=== PATIENT | female | born 1965 | race Caucasian/White ===

== ENCOUNTER 2017-11-11 07:10 | Outpatient (CLI) | payer OTHER | END 2017-11-11 07:11 | disposition home or self-care (01) | LOC: BICMAMMO 07:10 | PROVIDERS: ATTEND Family Medicine | DX: R92.8 Other abnormal and inconclusive findings on diagnostic imaging of breast (principal) ==

== ENCOUNTER 2019-03-15 09:28 | Outpatient (CLI) | payer BC ==
--- NOTE | 2019-03-15 10:59 | MMO ---
Bilateral MAMMO Bilat Diag [facility]. CLINICAL HISTORY: Patient is 53 years old and is seen for diagnostic exam and palpable abnormality in both breasts. The patient has the following family history of breast cancer: maternal grandmother, at age 65. The patient has no personal history of cancer. The patient has a history of right Excisional Biopsy in 2010 - benign. VIEWS: The views performed were: bilateral craniocaudal with tomosynthesis; bilateral mediolateral oblique with tomosynthesis; bilateral mediolateral; and right exaggerated craniocaudal. FILMS COMPARED: The present examination has been compared to prior imaging studies performed at on 08/24/2014, 09/20/2015, 12/16/2016, 11/11/2017 and 03/15/2019. MAMMOGRAM FINDINGS: The breasts are heterogeneously dense, which could obscure a lesion on mammography. There is an oval mass with circumscribed margins seen in the central region of the right breast. The mass was shown to be a cyst on ultrasound. There are no suspicious masses, suspicious calcifications, or new areas of architectural distortion. IMPRESSION: THERE IS NO MAMMOGRAPHIC EVIDENCE OF MALIGNANCY. A ROUTINE FOLLOW-UP MAMMOGRAM IN 1 YEAR IS RECOMMENDED. THE RESULTS OF THIS EXAM WERE SENT TO THE PATIENT. ACR BI-RADS Category 2 - Benign finding MAMMOGRAPHY NOTE: 1. A negative mammogram report should not delay a biopsy if a dominant of clinically suspicious mass is present. 2. Approximately 10% to 15% of breast cancers are not detected by mammography. 3. Adenosis and dense breasts may obscure an underlying neoplasm.
--- NOTE | 2019-03-15 11:21 | ULT ---
RIGHT BREAST ULTRASOUND LEFT BREAST ULTRASOUND: Date: 03/15/19 HISTORY: Palpable masses in bilateral breasts per the patient. The masses are in the upper inner aspect of the right breast and upper outer aspect of the left breast. COMPARISON: Mammogram dated 03/15/19, 11/11/17, and 12/16/16, and ultrasound dated 11/11/17 and 12/16/16. TECHNIQUE: Multiplanar Thompson scale and color Doppler images were obtained in bilateral breast ultrasound. FINDINGS: At the 1 o'clock position of the right breast, approximately 2.0 cm from the nipple, there is a well- circumscribed, anechoic cyst measuring 2.2 cm in greatest dimension. This corresponds to the mammogra phic abnormality. No suspicious mass or shadowing is seen in the right breast. In the left breast, at the 2-4 o'clock position, at the area of palpable abnormality, normal-appearin g breast parenchyma is seen. No solid mass or suspicious shadowing is seen. No cyst is identified in the left breast. IMPRESSION: BIRADS Category 2 - Benign finings. Annual screening mammography is recommended. POS: [facility]
== END 2019-03-15 09:29 | disposition home or self-care (01) ==
LOC: BICMAMMO 09:28
PROVIDERS: ATTEND Family Medicine
DX: N63.10 Unspecified lump in the right breast, unspecified quadrant (principal); N63.20 Unspecified lump in the left breast, unspecified quadrant; Z80.3 Family history of malignant neoplasm of breast
CPT/HCPCS: 77066; G0279